=== PATIENT | female | born 1995 | race Caucasian/White ===

== ENCOUNTER 2017-04-07 15:19 | Emergency (ER) | payer OTHER ==
[2017-04-07] MEDS ORDERED: NORMAL SALINE 1000 ML 1,000 ML IV PRN (15:48)
--- NOTE | 2017-04-07 15:49 | ER Document Report ---
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 She states 3 or 4 days ago she had some pain after lifting a heavy bottle. Now she has constant right flank pain that makes her nauseated. She states she has been unable to eat. She states she has had fevers at home. She denies problems with bowel movements or urination. She does not believe that she is currently . She denies any previous surgeries or chronic medical conditions. TRAVEL OUTSIDE OF THE [place] IN LAST 30 DAYS: No - Related Data Allergies/Adverse Reactions: No Known Allergies Allergy (Unverified 04/07/17 15:28) Home Medications: Current Home Medications No Home Medications 04/07/17 [History] Past Medical History - Social History Frequency of alcohol use: None Drug Abuse: None Renal/ Medical History: Denies: Hx Peritoneal Dialysis Surgical Hx: Negative Physical Exam - Vital signs Vitals: Temp Pulse Resp BP Pulse Ox 98.8 F 121 H 16 120/64 96 04/07/17 15:28 04/07/17 15:28 04/07/17 15:28 04/07/17 15:28 04/07/17 15:28 Course - Vital Signs Vital signs: Temp Pulse Resp BP Pulse Ox 98.8 F 121 H 16 120/64 96 04/07/17 15:28 04/07/17 15:28 04/07/17 15:28 04/07/17 15:28 04/07/17 15:28
[2017-04-07 16:13] LABS: ABSOLUTE LYMPHOCYTES (AUTO) 0.9 10^3/uL (0.5-4.7); ABSOLUTE MONOCYTES (AUTO) 0.7 10^3/uL (0.1-1.4); ABSOLUTE NEUT (AUTO) 9.4 10^3/uL (1.7-8.2); BASOPHILS % (AUTO) 0.2 % (0-2); HEMATOCRIT 37.2 % (36.0-47.0); HEMOGLOBIN 12.6 g/dL (12.0-15.5); HGB HCT DIFFERENCE 0.6; LYMPHOCYTES % (AUTO) 7.9 % (13-45); MEAN CORPUSCULAR HEMOGLOBIN 29.4 pg (27.0-33.4); MEAN CORPUSCULAR VOLUME 87 fl (80-97); MONOCYTES % (AUTO) 6.4 % (3-13); RED CELL DISTRIBUTION WIDTH 12.8 % (11.5-14.0); SEGMENTED NEUTROPHILS % (AUTO) 85.5 % (42-78)
[2017-04-07 16:21] LABS: APPEARANCE,URINE SLIGHTLY-CLOUDY; BILIRUBIN,URINE NEGATIVE (NEGATIVE); GLUCOSE, URINE 50 mg/dL (NEGATIVE); KETONES,URINE NEGATIVE (NEGATIVE); LEUKOCYTE ESTERASE,URINE LARGE (NEGATIVE); NITRITE,URINE POSITIVE (NEGATIVE); PROTEIN,URINE 30 mg/dL (NEGATIVE); URINE SPECIFIC GRAVITY 1.012
[2017-04-07] MEDS ORDERED: CEFTRIAXONE 1 GM/D5W RTU 1 GM/50 ML RTUPB IV ONE (16:25)
[2017-04-07] MEDS ORDERED: ONDANSETRON HCL INJ/PF 4 MG/2 ML SDV IV ONE ×2 (16:25→18:28)
[2017-04-07] MEDS ORDERED: KETOROLAC TROMETHAMINE INJ/PF 30 MG/1 ML SDV IV ONE (16:25)
[2017-04-07 16:34] LABS: ALANINE AMINOTRANSFERASE 22 U/L (9-52); ALBUMIN 4.2 g/dL (3.5-5.0); ALKALINE PHOSPHATASE 96 U/L (38-126); ANION GAP 16 (5-19); ASPARTATE AMINO TRANSFERASE 17 U/L (14-36); BILIRUBIN,DIRECT 0.4 mg/dL (0.0-0.4); BILIRUBIN,TOTAL 0.5 mg/dL (0.2-1.3); BLOOD UREA NITROGEN 6 mg/dL (7-20); CALCIUM 9.3 mg/dL (8.4-10.2); CARBON DIOXIDE 22 mmol/L (22-30); CHLORIDE 99 mmol/L (98-107); CREATININE RESULT 0.68 mg/dL (0.52-1.25); GLUCOSE 128 mg/dL (75-110); LIPASE 36.7 U/L (23-300); POTASSIUM 3.7 mmol/L (3.6-5.0); SODIUM 136.7 mmol/L (137-145); TOTAL PROTEIN 7.2 g/dL (6.3-8.2)
--- NOTE | 2017-04-07 17:56 | RADIOLOGY REPORT (SQ) ---
EXAM DESCRIPTION: CT LTD RENAL STONE PROTOCOL ON COMPLETED DATE/TIME: 04/07/2017 5:31 pm REASON FOR STUDY: flank pain COMPARISON: None. TECHNIQUE: CT scan of the abdomen and pelvis performed without intravenous or oral contrast. Images reviewed with lung, soft tissue, and bone windows. Reconstructed coronal and sagittal MPR images revi ewed. All images stored on PACS. All CT scanners at this facility use dose modulation, iterative reconstruction, and/or weight based d osing when appropriate to reduce radiation dose to as low as reasonably achievable (ALARA). [facility]: Dose Right [facility]: CareDose [facility]: Dose Right [facility]: Teradose 4D [facility]: [employer] RADIATION DOSE: Up-to-date CT equipment and radiation dose reduction techniques were employed. CTDIv ol: 4.8 mGy. DLP: 252 mGy-cm.mGy. LIMITATIONS: None. FINDINGS: LOWER CHEST: No significant findings. No nodules or infiltrates. NON-CONTRASTED LIVER, SPLEEN, ADRENALS: Evaluation limited by lack of IV contrast. No identified sign ificant masses. PANCREAS: No masses. No peripancreatic inflammatory changes. GALLBLADDER: No identified stones by CT criteria. No inflammatory changes to suggest cholecystitis. RIGHT KIDNEY AND URETER: No suspicious masses. Assessment limited by lack of IV contrast. No signif icant calcifications. No hydronephrosis or hydroureter. There is perinephric stranding, however. LEFT KIDNEY AND URETER: No suspicious masses. Assessment limited by lack of IV contrast. No signifi cant calcifications. No hydronephrosis or hydroureter. AORTA AND RETROPERITONEUM: No aneurysm. No retroperitoneal masses or adenopathy. BOWEL AND PERITONEAL CAVITY: No obvious masses or inflammatory changes. No free fluid. APPENDIX: Normal. PELVIS, BLADDER, AND ABDOMINAL WALL:No abnormal masses. No free fluid. Bladder normal. BONES: Mild lumbar scoliosis. No osseous lesions. OTHER: No other significant finding. IMPRESSION: There is perinephric stranding on the right. There is no hydronephrosis or hydroureter. No obstructing calculus is seen. There may have been recent passage of a stone. Correlate clinica lly for infection. COMMENT: Quality ID # [id number]: Final reports with documentation of one or more dose reduction techniques (e.g., Automated exposure control, adjustment of the mA and/or kV according to patient size, use of iterative reconstruction technique) TECHNICAL DOCUMENTATION: JOB ID: [id number] [employer]- All Rights Reserved
[2017-04-07] MEDS ORDERED: MORPHINE SULFATE 10 MG/ML INJ IV ONE (18:28)
[2017-04-07] MEDS ORDERED: CEPHALEXIN 500 MG CAPSULE PO ONE (18:28)
--- NOTE | 2017-04-07 18:35 | ER Document Report ---
ED General - General Chief Complaint: Flank Pain Stated Complaint: RIGHT SIDE PAIN, FEVER Time Seen by Provider: 04/07/17 15:47 TRAVEL OUTSIDE OF THE [place] IN LAST 30 DAYS: No - HPI Patient complains to provider of: Right flank pain Notes: Patient coming in for evaluation of right flank pain and fever. Patient denies any dysuria. Denies history of kidney stones. Patient states nausea vomiting diarrhea. Patient denies any recent travel. Upon my evaluation patient is lying on the right side patient denies any abdominal pain states over pain in his right flank. Denies any shortness of breath denies any trauma - Related Data Allergies/Adverse Reactions: No Known Allergies Allergy (Unverified 04/07/17 15:28) Past Medical History - Social History Smoking Status: Never Smoker Frequency of alcohol use: None Drug Abuse: None Family History: Reviewed & Not Pertinent Patient has suicidal ideation: No Patient has homicidal ideation: No Renal/ Medical History: Denies: Hx Peritoneal Dialysis Surgical Hx: Negative Review of Systems - Review of Systems Constitutional: No symptoms reported EENT: No symptoms reported Cardiovascular: No symptoms reported Respiratory: No symptoms reported Gastrointestinal: No symptoms reported Genitourinary: Flank pain Female Genitourinary: No symptoms reported Musculoskeletal: No symptoms reported Skin: No symptoms reported Hematologic/Lymphatic: No symptoms reported Neurological/Psychological: No symptoms reported -: Yes All other systems reviewed and negative Physical Exam - Vital signs Vitals: Temp Pulse Resp BP Pulse Ox 98.8 F 121 H 16 120/64 96 04/07/17 15:28 04/07/17 15:28 04/07/17 15:28 04/07/17 15:28 04/07/17 15:28 Interpretation: Normal - General General appearance: Appears well, Alert - HEENT Head: Normocephalic, Atraumatic Eyes: Normal Pupils: PERRL - Respiratory Respiratory status: No respiratory distress Chest status: Nontender Breath sounds: Normal Chest palpation: Normal - Cardiovascular Rhythm: Regular Heart sounds: Normal auscultation Murmur: No - Abdominal Inspection: Normal Distension: No distension Bowel sounds: Normal Tenderness: Nontender Organomegaly: No organomegaly - Back Back: Normal, Nontender, CVA tenderness - Right - Extremities General upper extremity: Normal inspection, Nontender, Normal color, Normal ROM , Normal temperature General lower extremity: Normal inspection, Nontender, Normal color, Normal ROM , Normal temperature, Normal weight bearing. No: Srinivasa's sign - Neurological Neuro grossly intact: Yes Cognition: Normal Orientation: AAOx4 [place] Coma Scale Eye Opening: Spontaneous [place] Coma Scale Verbal: Oriented [place] Coma Scale Motor: Obeys Commands [place] Coma Scale Total: 15 Speech: Normal Motor strength normal: LUE, RUE, LLE, RLE Sensory: Normal - Psychological Associated symptoms: Normal affect, Normal mood - Skin Skin Temperature: Warm Skin Moisture: Dry Skin Color: Normal Course - Re-evaluation Re-evalutation: 04/07/17 22:41 Patient coming in for evaluation of right flank pain. Urinalysis does show signs of infection consistent with pilonidal however concern the patient having blood in urine CT of the abdomen was negative for kidney stone patient will be given a dose of IV antibiotics was able tolerate oral antibiotics here will be discharged home urine culture sent. - Vital Signs Vital signs: Temp Pulse Resp BP Pulse Ox 98.0 F 88 18 105/56 L 98 04/07/17 19:03 04/07/17 19:03 04/07/17 19:03 04/07/17 19:03 04/07/17 19:03 - Laboratory Result Diagrams: 04/07/17 15:55 04/07/17 15:55 Laboratory results interpreted by me: 04/07/17 04/07/17 04/07/17 15:52 15:55 15:55 WBC 11.0 H Seg Neutrophils % 85.5 H Lymphocytes % 7.9 L Absolute Neutrophils 9.4 H Sodium 136.7 L BUN 6 L Glucose 128 H Urine Protein 30 H Urine Glucose (UA) 50 H Urine Blood MODERATE H Urine Nitrite POSITIVE H Urine Urobilinogen 2.0 H Ur Leukocyte Esterase LARGE H Discharge - Discharge Clinical Impression: Pyelonephritis Condition: Good Disposition: HOME, SELF-CARE Instructions: Pyelonephritis ([facility]) Additional Instructions: Your evaluation today shows signs of pyelonephritis. Please make sure you follow-up with your primary care physician. Please take antibiotics as prescribed. Prescriptions: Cephalexin Monohydrate [Keflex 500 mg Capsule] 500 mg PO QID 10 Days capsule Ondansetron [Zofran Odt 4 mg Tablet] 1 - 2 tab PO Q4H PRN #20 tab.rapdis PRN Reason: For Nausea/Vomiting Tramadol HCl [Ultram 50 mg Tablet] 50 mg PO ASDIR PRN #20 tablet PRN Reason: Forms: Return to Work
[2017-04-07 19:03] VITALS: BP 105/56
== END 2017-04-07 19:03 | disposition home or self-care (01) ==
LOC: ER 15:19
DX: N12 Tubulo-interstitial nephritis, not specified as acute or chronic (principal); R10.9 Unspecified abdominal pain; R50.9 Fever, unspecified
CPT/HCPCS: 96376; 99284; 96361; 96375; 96365; 36415; 87040; 87086; 83690; 85025; 81025; 87088; 80053; 81001; 87186; 76380; J1885; J2270; J2405; J7030; J0696

== ENCOUNTER 2019-09-30 00:48 | Emergency (ER) | payer OTHER ==
[2019-09-30 02:18] LABS: ABSOLUTE LYMPHOCYTES (AUTO) 2.2 10^3/uL (0.5-4.7); ABSOLUTE MONOCYTES (AUTO) 0.4 10^3/uL (0.1-1.4); ABSOLUTE NEUT (AUTO) 5.3 10^3/uL (1.7-8.2); BASOPHILS % (AUTO) 0.3 % (0-2); EOSINOPHILS % (AUTO) 0.5 % (0-6); HEMATOCRIT 37.4 % (36.0-47.0); LYMPHOCYTES % (AUTO) 27.3 % (13-45); MEAN CORPUSCULAR HGB CONC 34.7 g/dL (32.0-36.0); MEAN CORPUSCULAR VOLUME 87 fl (80-97); MONOCYTES % (AUTO) 5.3 % (3-13); PLATELET COUNT 230 10^3/uL (150-450); RED BLOOD COUNT 4.32 10^6/uL (3.72-5.28); RED CELL DISTRIBUTION WIDTH 13.4 % (11.5-14.0); SEGMENTED NEUTROPHILS % (AUTO) 66.6 % (42-78); TOTAL CELLS COUNTED % (AUTO) 100 %
[2019-09-30 02:33] LABS: ALBUMIN 4.6 g/dL (3.5-5.0); ALKALINE PHOSPHATASE 89 U/L (38-126); ANION GAP 12 (5-19); APPEARANCE,URINE SLIGHTLY-CLOUDY; ASPARTATE AMINO TRANSFERASE 25 U/L (14-36); BILIRUBIN,DIRECT 0.3 mg/dL (0.0-0.4); BILIRUBIN,TOTAL 0.4 mg/dL (0.2-1.3); BILIRUBIN,URINE NEGATIVE (NEGATIVE); BLOOD UREA NITROGEN 15 mg/dL (7-20); CALCIUM 9.6 mg/dL (8.4-10.2); CALCIUM OXALATE CRYSTALS,URINE RARE /HPF; CARBON DIOXIDE 23 mmol/L (22-30); CHLORIDE 106 mmol/L (98-107); COLOR,URINE YELLOW; GLUCOSE 79 mg/dL (75-110); GLUCOSE, URINE NEGATIVE (NEGATIVE); KETONES,URINE TRACE mg/dL (NEGATIVE); LEUKOCYTE ESTERASE,URINE MODERATE (NEGATIVE); NITRITE,URINE NEGATIVE (NEGATIVE); POTASSIUM 4.1 mmol/L (3.6-5.0); PROTEIN,URINE 30 mg/dL (NEGATIVE); TOTAL PROTEIN 7.8 g/dL (6.3-8.2); URINE SPECIFIC GRAVITY 1.016; UROBILINOGEN,URINE NEGATIVE mg/dL (<2.0)
[2019-09-30] MEDS ORDERED: CEFTRIAXONE INJ 1000 MG VIAL IM ONE (05:01)
[2019-09-30] MEDS ORDERED: LIDOCAINE 1% INJ-PF (10 MG/ML) 30 ML SDV IM ONE (05:02)
[2019-09-30] MEDS ORDERED: HYDROCODONE/ACETAMINOPHEN 5-325 MG TABLET PO ONE (05:02)
--- NOTE | 2019-09-30 05:05 | ER Document Report ---
ED GI/ - General Chief Complaint: Flank Pain Stated Complaint: LOWER RIGHT SIDE PAIN/PAIN WHILE URINATING Time Seen by Provider: 09/30/19 04:45 Primary Care Provider: [facility] [Provider Group] - Follow up as needed Mode of Arrival: Ambulatory Information source: Patient Notes: Patient presents complaining of right flank pain that woke her up out of sleep yesterday. Patient states pain is been sharp. Patient does report some dysuria and hematuria. Patient denies any fever nausea or vomiting. Patient denies any concern about STI. TRAVEL OUTSIDE OF THE [place] IN LAST 30 DAYS: No - HPI Patient complains to provider of: Flank pain. No: Abdominal pain, Vomiting Onset: Yesterday Timing/Duration: Persistent, Worse Quality of pain: Sharp Pain Level: 4 Location: Right flank Vaginal bleeding (Compared to normal period): None Menstrual period history: denies: Sexual history: Active Associated symptoms: Dysuria. denies: Fever, Loss of appetite, Nausea, Urinary hesitancy, Urinary frequency, Urinary retention, Urinary urgency, Vomiting Exacerbated by: Denies Relieved by: Denies Similar symptoms previously: No Recently seen / treated by doctor: No - Related Data Allergies/Adverse Reactions: No Known Allergies Allergy (Unverified 04/07/17 15:28) Home Medications: OTC UTI med. melissa asa Past Medical History - General Information source: Patient - Social History Smoking Status: Never Smoker Frequency of alcohol use: None Drug Abuse: None Occupation: none Family History: Reviewed & Not Pertinent Patient has suicidal ideation: No Patient has homicidal ideation: No - Medical History Medical History: Negative Renal/ Medical History: Denies: Hx Peritoneal Dialysis Surgical Hx: Negative Review of Systems - Review of Systems Constitutional: No symptoms reported. denies: Fever EENT: No symptoms reported Cardiovascular: No symptoms reported Respiratory: No symptoms reported. denies: Cough, Short of breath Gastrointestinal: No symptoms reported. denies: Abdominal pain, Nausea, Vomiting Genitourinary: Dysuria, Flank pain Female Genitourinary: No symptoms reported Musculoskeletal: Back pain Skin: No symptoms reported Hematologic/Lymphatic: No symptoms reported Neurological/Psychological: No symptoms reported Physical Exam - Vital signs Vitals: Temp Pulse Resp BP Pulse Ox 98.3 F 74 16 128/75 H 100 09/30/19 00:56 09/30/19 00:56 09/30/19 00:56 09/30/19 00:56 09/30/19 00:56 - General General appearance: Appears well, Alert In distress: None - HEENT Head: Normocephalic, Atraumatic Eyes: Normal Nasal: Normal Mouth/Lips: Normal Neck: Normal, Supple - Respiratory Respiratory status: No respiratory distress Chest status: Nontender Breath sounds: Normal. No: Rales, Rhonchi, Stridor, Wheezing Chest palpation: Normal - Cardiovascular Rhythm: Regular Heart sounds: S1 appreciated, S2 appreciated - Abdominal Inspection: Normal Distension: No distension Bowel sounds: Normal Tenderness: Nontender - Back Back: CVA tenderness - right - Extremities General upper extremity: Normal inspection, Normal ROM General lower extremity: Normal inspection, Normal ROM - Neurological Cognition: Normal [place] Coma Scale Eye Opening: Spontaneous [place] Coma Scale Verbal: Oriented [place] Coma Scale Motor: Obeys Commands [place] Coma Scale Total: 15 - Psychological Associated symptoms: Normal affect, Normal mood - Skin Skin Temperature: Warm Skin Moisture: Dry Skin Color: Normal Course - Re-evaluation Re-evalutation: 09/30/19 06:41 Patient with right flank pain and UTI worrisome for pyelonephritis. CT scan reviewed, no concern for any obstructive uropathy. Patient otherwise nontoxic in appearance. Will cover with antibiotics and culture urine at this time. Good return precautions discussed with patient. - Vital Signs Vital signs: Temp Pulse Resp BP Pulse Ox 97.8 F 67 16 113/73 100 09/30/19 06:55 09/30/19 06:55 09/30/19 06:55 09/30/19 06:55 09/30/19 06:55 - Laboratory Result Diagrams: 09/30/19 01:40 09/30/19 01:40 Laboratory results interpreted by me: 09/30/19 01:40 Urine Protein 30 H Urine Ketones TRACE H Urine Blood SMALL H Ur Leukocyte Esterase MODERATE H 09/30/19 06:41 Labs- Entire Visit 09/30/19 09/30/19 09/30/19 01:40 01:40 01:40 WBC 8.0 RBC 4.32 Hgb 13.0 Hct 37.4 MCV 87 MCH 30.0 MCHC 34.7 RDW 13.4 Plt Count 230 Lymph % (Auto) 27.3 [place] % (Auto) 5.3 Eos % (Auto) 0.5 Baso % (Auto) 0.3 Absolute Neuts (auto) 5.3 Absolute Lymphs (auto) 2.2 Absolute Monos (auto) 0.4 Absolute Eos (auto) 0.0 Absolute Basos (auto) 0.0 Seg Neutrophils % 66.6 Sodium 141.4 Potassium 4.1 Chloride 106 Carbon Dioxide 23 Anion Gap 12 BUN 15 Creatinine 0.55 Est GFR ( Amer) > 60 Est GFR (MDRD) Non-Af > 60 Glucose 79 Calcium 9.6 Total Bilirubin 0.4 Direct Bilirubin 0.3 Neonat Total Bilirubin Not Reportable Neonat Direct Bilirubin Not Reportable Neonat Indirect Bili Not Reportable AST 25 ALT 13 Alkaline Phosphatase 89 Total Protein 7.8 Albumin 4.6 Lipase 78.6 Urine Color YELLOW Urine Appearance SLIGHTLY-CLOUDY Urine pH 7.0 Ur Specific [place] 1.016 Urine Protein 30 H Urine Glucose (UA) NEGATIVE Urine Ketones TRACE H Urine Blood SMALL H Urine Nitrite NEGATIVE Urine Bilirubin NEGATIVE Urine Urobilinogen NEGATIVE Ur Leukocyte Esterase MODERATE H Urine WBC (Auto) 160 Urine RBC (Auto) 26 Squamous Epi Cells Auto 1 Calcium Oxalate Cr Auto RARE Urine Mucus (Auto) RARE Urine Ascorbic Acid NEGATIVE Urine HCG, Qual NEGATIVE - Diagnostic Test Radiology reviewed: Reports reviewed Discharge - Discharge Clinical Impression: Pyelonephritis Condition: Stable Disposition: HOME, SELF-CARE Instructions: Cephalexin ([facility]), Pyelonephritis ([facility]), Rocephin ([facility]), Trimethoprim-Sulfa ([facility]) Additional Instructions: Return immediately for any new or worsening symptoms Followup with your primary care provider, call tomorrow to make a followup appointment Urine culture is pending, we will call if you need any different treatment Prescriptions: Sulfamethoxazole/Trimethoprim [Bactrim Ds Tablet] 1 each PO BID #20 tablet Cephalexin Monohydrate [Keflex 500 mg Capsule] 500 mg PO BID 7 Days #14 capsule Naproxen [Naprosyn 250 Nmg Tablet] 1 tab PO BID #14 tablet Forms: Return to Work Referrals: [facility] [Provider Group] - Follow up as needed
--- NOTE | 2019-09-30 06:25 | RADIOLOGY REPORT (SQ) ---
EXAM DESCRIPTION: CT ABDOMEN PELVIS WITHOUT IV CONTRAST COMPLETED DATE/TME: 09/30/2019 05:02 CLINICAL HISTORY: 23 years Female, R flank pain, UTI Comparison:Apr 07 2017 Technique: No contrast. Coronal and sagittal reformat. This exam was performed according to our departmental dose-optimization program, which includes automated exposure control, adjustment of the mA and/or kV according to patient size and/or use of iterative reconstruction technique.[facility]: Dose Right [facility]: CareDose [facility]: Dose Right [facility]: Teradose 4D [facility]: [employer] LIMITATIONS: None Findings: Mild levo convexity. Stool retention. No ascites. No pneumoperitoneum. Normal appendix. No gross evidence of gallbladder inflammation, hepatobiliary obstruction, or portal vein defect. No bowel obstruction. No hydronephrosis or hydroureter. No renal/ureteral stone. No evidence of abdominal aortic aneurysm. No gross evidence of thecal sac/cord or nerve root compression. Unenhanced lower thorax, abdominopelvic structures, and musculoskeleton appear otherwise grossly unremarkable. Impression: No acute findings.
[2019-09-30 07:10] VITALS: BP 113/73
== END 2019-09-30 06:55 | disposition home or self-care (01) ==
LOC: ER 00:48
DX: N12 Tubulo-interstitial nephritis, not specified as acute or chronic (principal); R31.9 Hematuria, unspecified; Z79.82 Long term (current) use of aspirin; Z79.899 Other long term (current) drug therapy
CPT/HCPCS: 99284; 96372; 36415; 87086; 83690; 85025; 81025; 87088; 80053; 81001; 87186; 74176; J3490; J0696

== ENCOUNTER 2020-07-15 18:49 | Inpatient (IN) | payer OTHER, MEDICAID ==
[2020-07-15 19:49] LABS: APPEARANCE,URINE CLOUDY; BILIRUBIN,URINE NEGATIVE (NEGATIVE); COLOR,URINE YELLOW; GLUCOSE, URINE NEGATIVE (NEGATIVE); KETONES,URINE NEGATIVE (NEGATIVE); LEUKOCYTE ESTERASE,URINE MODERATE (NEGATIVE); NITRITE,URINE NEGATIVE (NEGATIVE); PROTEIN,URINE 30 mg/dL (NEGATIVE); URINE SPECIFIC GRAVITY 1.017; UROBILINOGEN,URINE NEGATIVE mg/dL (<2.0)
[2020-07-15 20:06] LABS: URINE AMPHETAMINES SCREEN NEGATIVE; URINE BARBITURATES SCREEN NEGATIVE; URINE BENZODIAZEPINES SCREEN NEGATIVE; URINE COCAINE SCREEN NEGATIVE; URINE MARIJUANA (THC) SCREEN NEGATIVE; URINE METHADONE SCREEN NEGATIVE; URINE PHENCYCLIDINE SCREEN NEGATIVE
[2020-07-15] MEDS ORDERED: RINGERS SOLUTION,LACTATED 1,000 ML IV PRN (22:11)
[2020-07-15] MEDS ORDERED: OXYTOCIN 10 UNIT/ML VIAL ONE (22:36)
[2020-07-15] MEDS ORDERED: OXYTOCIN/0.9 % SODIUM CHLORIDE 30 UNIT/500 ML RTUINJ ONE (22:36)
[2020-07-15] MEDS ORDERED: MISOPROSTOL 0.2 MG TABLET ONE (22:36)
[2020-07-15] MEDS ORDERED: LIDOCAINE 1% INJ-PF (10 MG/ML) 30 ML SDV ONE (22:36)
[2020-07-15 22:41] LABS: ABSOLUTE LYMPHOCYTES (AUTO) 1.5 10^3/uL (0.5-4.7); ABSOLUTE MONOCYTES (AUTO) 0.5 10^3/uL (0.1-1.4); BASOPHILS % (AUTO) 0.2 % (0-2); EOSINOPHILS % (AUTO) 0.2 % (0-6); HEMATOCRIT 28.8 % (36.0-47.0); HEMOGLOBIN 10.1 g/dL (12.0-15.5); LYMPHOCYTES % (AUTO) 18.4 % (13-45); MEAN CORPUSCULAR HEMOGLOBIN 30.1 pg (27.0-33.4); MEAN CORPUSCULAR VOLUME 86 fl (80-97); MONOCYTES % (AUTO) 5.9 % (3-13); PLATELET COUNT 132 10^3/uL (150-450); RED BLOOD COUNT 3.34 10^6/uL (3.72-5.28); RED CELL DISTRIBUTION WIDTH 14.2 % (11.5-14.0); SEGMENTED NEUTROPHILS % (AUTO) 75.3 % (42-78); TOTAL CELLS COUNTED % (AUTO) 100 %; WHITE BLOOD COUNT 7.9 10^3/uL (4.0-10.5)
[2020-07-16] MEDS ORDERED: EPHEDRINE SULFATE INJ 50 MG/1 ML AMPULE ONE (08:32)
[2020-07-16] MEDS ORDERED: ROPIVACAINE HCL 0.2% INJ/PF (2 MG/ML) 20 ML SDV ONE (08:33)
[2020-07-16] MEDS ORDERED: FENTANYL/BUPIVACAINE/NS/PF 300 MCG/150 ML RTUINJ EPI ONE (08:33)
--- NOTE | 2020-07-16 09:37 | Admission Physical ---
Datetime Report Generated by CPN: 07/16/2020 09:37 CURRENT ADMISSION Chief Complaint: Uterine Contractions Admit Impression : Term, Intrauterine Admit Plan: Admit to Unit; Initiate Labor Protocol ALLERGIES Medication Allergies: No Medication Allergies: No Known Allergies (07/15/2020) Latex: No Latex Allergies OBSTETRICAL HISTORY EDC: 07/24/2020 00:00 : 1 Para: 0 Term: 0 : 0 SAB: 0 IAB: 0 Ectopic: 0 Livin Cesareans: 0 VBACs: 0 Multiple Births: 0 Gestational Diabetes: No Rh Sensitization: No Incompetent Cervix: No FABIOLA: No Infertility: No ART Treatment: No Uterine Anomaly: No IUGR: No Hx Previous C/S: No Macrosomia: No Hx Loss/Stillborn: No PIH: No Hx : No Placenta Previa/Abruption: No Depression/PP Depression: No PTL/PROM: No Post Hemorrhage: No Current Procedures: Ultrasound (Annotations: Data stored by N on behalf of user) Obstetrical History Comments: G1- current SEE RECORDS Alcohol: No Marijuana : No Cocaine: No Other Illicit Drugs: No Cigarettes: Never Smoker. [id number] MEDICAL HISTORY Diabetes: No Blood Transfusion: No Pulmonary Disease (Asthma, TB): No Breast Disease: No Hypertension: No Email Marketer Surgery: No Heart Disease: No Hosp/Surgery: No Autoimmune Disorder: No Anesthetic Complications: No Kidney Disease: No Abnormal Pap Smear: No Neuro/Epilepsy: No Psychiatric Disorders: No Other Medical Diseases: No Hepatitis/Liver Disease: No Significant Family History: No Varicosities/Phlebitis: No Trauma/Violence : No Thyroid Dysfunction: No Medical History Comments: anemia INFECTIOUS HISTORY Gonorrhea: No Genital Herpes: No Chlamydia: No Tuberculosis: No Syphilis: No Hepatitis: No HIV/AIDS Exposure: No Rash or Viral Illness: No HPV: No PHYSICAL EXAM General: Normal HEENT: Normal Neurologic: Normal Thyroid: Normal Heart: Normal Lungs: Normal Breast: Normal Back: Normal Abdomen: Normal Genitourinary Exam: Normal Extremities: Normal DTRs: Normal Pelvic Type: Adequate Vital Signs: Reviewed FETUS A EGA: 38.6 Monitoring: External US FHR- Baseline: 130 Variability: Moderate 6-25bpm Accelerations: 15X15 Decelerations: None FHR Category: Category I Admit Comment: pt admitted over night w/ cervical change. Went from 3 cm to 6 cm and pt was admitted in active labor. Attending MD last night was Dr Junior. G 1 P0 at 38 wks 5 days. Denies SROM. Spontatneous labor, GBS negative. Epidural just placed. will AROM once pt is comfortable. Attending MD today is Dr Cardona and she agrees w/ plan of care INFORMED CONSENT Assignment: Matilde Cardona MD Signature: with User ID: Sy : with User ID: [email or web address]
--- NOTE | 2020-07-16 10:06 | L&D Progress Notes ---
PROGRESS NOTES Datetime Report Generated by CPN: 07/16/2020 10:01 PROGRESS NOTE Impression: Normal Progression of Labor Procedures: Artificial ROM; Sterile Vag Exam Plan: Continue Present Management Vital Signs : Reviewed Comment: Pt comfortable w/ epidural in place. VE /1. AROM w/ dark red blood, clotted already. RN will weigh the pad. No active bleeding after the AROM. Blood was inside amniotic sac. Dr Cardona in room to view. Will watch for active vaginal bleeding. Position changes encouraged. Anticipate . VAGINAL EXAM Dilatation: 8 Effacement: 90 Station: -1 Contractions: q1-4 LAST VAGINAL EXAM-NURSING Nursing Exam Dilitation: 6.0 Nursing Exam Effacement: 80 Nursing Exam Station: -2 MEMBRANES Membranes: Ruptured Amniotic Fluid Color: Bloody FETUS A FHR - Baseline: 130 Monitoring: External US Variability: Moderate 6-25bpm Accelerations: 10X10 SIGNATURE SIGNATURE: [id number];[id number] Assignment: Matilde Cardona MD Signature: with User ID: Sy : with User ID: [email or web address]
[2020-07-16] MEDS ORDERED: NORMAL SALINE 250 ML IV PRN ×2 (10:32)
[2020-07-16] MEDS ORDERED: DIPH/PERTUSS(ACELL)/TETANUS VAC/PF 0.5 ML SYR (>=10YO) IM PRN (12:03)
[2020-07-16] MEDS ORDERED: PROMETHAZINE HCL 25 MG SUPP.RECT PR PRN (12:03)
[2020-07-16] MEDS ORDERED: MEASLES,MUMPS&RUBELLA VACC/PF 0.5 ML VIAL SUBCUT PRN (12:03)
[2020-07-16] MEDS ORDERED: NA PHOS,M-B/NA PHOS,DI-BA (ADULT) 133 ML ENEMA PR PRN (12:03)
[2020-07-16] MEDS ORDERED: ACETAMINOPHEN 650 MG SUPP.RECT PR PRN (12:03)
[2020-07-16] MEDS ORDERED: DIBUCAINE 1% OINTMENT 28 GM TP PRN (12:03)
[2020-07-16] MEDS ORDERED: GLYCERIN/WITCH HAZEL LEAF 1 EACH MED..WIPE TP PRN (12:03)
[2020-07-16] MEDS ORDERED: BENZOCAINE/MENTHOL AEROSOL SPRAY 56 ML TOP PRN (12:03)
[2020-07-16] MEDS ORDERED: DIPHENHYDRAMINE HCL 25 MG CAPSULE PO PRN (12:03)
[2020-07-16] MEDS ORDERED: PROMETHAZINE HCL INJ 25 MG/1 ML VIAL IV PRN (12:03)
[2020-07-16] MEDS ORDERED: ZOLPIDEM TARTRATE 5 MG TABLET PO PRN (12:03)
[2020-07-16] MEDS ORDERED: MAGNESIUM HYDROXIDE SUSP 30 ML UDCUP PO PRN (12:03)
[2020-07-16] MEDS ORDERED: PROMETHAZINE HCL 25 MG TABLET PO PRN (12:03)
[2020-07-16] MEDS ORDERED: ACETAMINOPHEN WITH CODEINE #3 TABLET PO PRN (12:03)
[2020-07-16] MEDS ORDERED: OXYTOCIN/0.9 % SODIUM CHLORIDE 30 UNIT/500 ML RTUINJ IV PRN (12:03)
--- NOTE | 2020-07-16 14:17 | Birth Certificate Data ---
Cert Data Datetime Report Generated by CPN: 07/16/2020 14:17 CERTIFICATE DATA Delivery Provider: Sarika Parra CNM (07/15/2020 18:56:STERLING Moulton) 47a. Care: Yes (07/15/2020 18:56:Lizeth Curtis RN) 47b. Date of First Visit: 01/03/2020 00:00 (07/15/2020 18:56:Lizeth Curtis RN) 47c. Date of Last Visit: 07/12/2020 00:00 (07/15/2020 18:56:Lizeth Curtis RN) 47d. Number of Visits: 11 (07/15/2020 18:56:Lizeth Curtis RN) 48a. Number of Prev Live Births: 0 (07/15/2020 18:56:Lizeth Curtis RN) 48b. Now Livin (07/15/2020 18:56:Lizeth Curtis RN) 48c. Live Births Now : 0 (07/15/2020 18:56:QS system process) 48e. Losses: 0 (07/15/2020 18:56:Lizeth Curtis RN) RISK FACTORS IN THIS 49a. Diabetes: No (07/15/2020 18:56:Lizeth Curtis RN) 49b. Hypertension: No (07/15/2020 18:56:Lizeth Curtis RN) 49c. Previous Births: 0 (07/15/2020 18:56:Lizeth Curtis RN) 49d. Stillborns: No (07/15/2020 18:56:Lizeth Curtis RN) 49d. IUGR: No (07/15/2020 18:56:Lizeth Curtis RN) 49e. Infertility Treatment: No (07/15/2020 18:56:Lizeth Curtis RN) 49f. Previous Cesareans: 0 (07/15/2020 18:56:Lizeth Curtis RN) Mother's Height 50b. Height Inches: 62 (07/16/2020 14:09:QS system process) Mother's Weight 51b. Weight at Delivery (lbs): 136 (07/15/2020 19:03:QS system process) 52. Dt Last Normal Menses Began: 10/18/2019 00:00 (07/15/2020 18:56:Lizeth Curtis RN) Infections Present/Treated 53a. Gonorrhea: No (07/15/2020 18:56:Lizeth Curtis RN) Results this Hospital Visit : Negative (07/15/2020 18:56:Lizeth Curtis RN) 53b. Syphilis: No (07/15/2020 18:56:Lizeth Curtis RN) Results this Hospital Visit: NONREACTIVE (07/15/2020 22:30:QS system process) 53c. Chlamydia: No (07/15/2020 18:56:Lizeth Curtis RN) Results this Hospital Visit: Negative (07/15/2020 18:56:Lizeth Curtis RN) 53d. Hepatitis B: No (07/15/2020 18:56:Lizeth Curtis RN) Results this Hospital Visit: Negative (07/15/2020 18:56:Lizeth Curtis RN) 53e. Hepatitis C: Negative (07/15/2020 18:56:Lizeth Curtis RN) 53h. Mother Tested for HBsAG: Yes (07/15/2020 18:56:Lizeth Curtis RN) 53i. Date Tested: 01/03/2020 00:00 (07/15/2020 18:56:Lizeth Curtis RN) 53j. Test Result: Negative (07/15/2020 18:56:Lizeth Curtis RN) Obstetric Procedures 54a, b, c. Obstetric Procedures: Ultrasound (Annotations: Data stored by [facility] on behalf of user) (07/15/2020 18:56:Gely Cummins RN) Cigarette Smoking Cigarette Smoking: Never Smoker. [id number] (07/15/2020 18:56:Lizeth Curtis RN) 55a. 3 Months Before Preg - Ci (07/15/2020 18:56:Lizeth Curtis RN) 55a. Packs: 0 (07/15/2020 18:56:Lizeth Curtis RN) 55b. 1st Trimester of Preg- Ci (07/15/2020 18:56:Lizeth Curtis RN) 55b. Packs: 0 (07/15/2020 18:56:Lizeth Curtis RN) 55c. 2nd Trimester of Preg- Ci (07/15/2020 18:56:Lizeth Curtis RN) 55c. Packs: 0 (07/15/2020 18:56:Lizeth Curtis RN) 55d. 3rd Trimester of Preg- Ci (07/15/2020 18:56:Lizeth Curtis RN) 55d. Packs: 0 (07/15/2020 18:56:Lizeth Curtis RN) Onset of Labor 56a. PROM >12 Hrs: 1.77 (07/15/2020 18:56:QS system process) 56b. Precipitous Labor <3 Hrs: 7 (07/15/2020 18:56:QS system process) 56c. Prolonged Labor > 20 Hrs: 7 (07/15/2020 18:56:QS system process) 57a. Induction of Labor: N/A (07/15/2020 18:56:STERLING Moulton) 57c. Non-Vertex Presentation A: Vertex (07/15/2020 18:56:Judith Lanier Ramin) 57d. Steroids - Lung Mat: None (07/15/2020 18:56:STERLING Moulton) 57d. Steroids - Lung Mat: Not Applicable (07/15/2020 18:56:Judith Lanier Ramin) 57f. Mat [place] or Temp >100.4: 98.2 (07/15/2020 18:56:Gely Cummins RN) 57g. Moderate/Heavy Meconium: Bloody (07/16/2020 09:53:Gely Cummins RN) 57h. Intolerance of Labor: N/A (07/15/2020 18:56:STERLING Moulton) : N/A (07/15/2020 18:56:Judith Lanier Ramin) 57i. Epidural/Spinal Anesthesia: Epidural (07/15/2020 18:56:Judith Lanier [facility]) Method of Delivery 58a. Forceps - Unsuccessful A: N/A (07/15/2020 18:56:STERLING Moulton) 58b. Vacuum - Unsuccessful A: N/A (07/15/2020 18:56:Judith Camp, [facility]) 58c. Presentation at 58c. Presentation at - A : Vertex (07/15/2020 18:56:[facility]) 58c. Presentation at - A : N/A (07/15/2020 18:56:[facility]) 58c. Presentation at - A : Cephalic (07/16/2020 09:53:Gely Cummins RN) Final Route and Method of Del 58d. Baby A Route/Del[facility]: [facility]e. Trial of Labor Attempted: No (07/15/2020 18:56:Judith [place], [facility]) 58e. Trial of Labor Attempted A: N/A (07/15/2020 18:56:Judith Camp, [facility]) 58e. Trial of Labor Attempted B: N/A (07/15/2020 18:56:Judith [place], [facility]) Maternal Morbidity 59b. 3rd or 4th Degree Lacs: Perineal (07/15/2020 18:56:Judith [place], RN) 59b. 3rd or 4th Degree Lacs: First Degree (07/15/2020 18:56:Judith Camp, RN) 59b. 3rd or 4th Degree Lacs: periurethral (07/15/2020 18:56:Judith [place], RNC) Birthweight Baby A: 2783 (07/15/2020 18:56:Gely Cummins RN) 60a. Pounds : 6 (07/15/2020 18:56:QS system process) 60b. Ounces: 2 (07/15/2020 18:56:QS system process) 61. GA at Delivery Baby A: 38.6 (07/15/2020 18:56:Judith Camp, [facility]) : Early Term- 37- 38.6 Weeks (07/15/2020 18:56:QS system process) 62a. 5 Minute Baby A: 9 (07/15/2020 18:56:QS system process)
--- NOTE | 2020-07-16 14:17 | Delivery Summary ---
Del Sum A-C Datetime Report Generated by CPN: 07/16/2020 14:17 DELIVERY PERSONNEL DELIVERY PERSONNEL: [id number] Delivery Doctor:: Sarika Parra CNM Nurse Brass Bobbin Winder Certified:: Sarika Parra CNM DRAFTER APPRENTICE:: Veronika Bee Labor and Delivery Nurse:: Gely Cummins RNrodent control worker Nurse:: STERLING Moulton Nursery Nurse:: Shantelle Tabares RN Nursery Nurse:: Dalila Onofre RN Production Engineer/MOLASSES PREPARER: Glenna Marshburn, ASSISTANT ANALYST MATERNAL INFORMATION Delivery Anesthesia: Epidural Medications After Delivery: Pitocin Bolus-Please Comment; Pitocin 30 Units in 500ml NS/D5W Estimated Blood Loss (ml): 50 Delivery QBL: 50 Maternal Complications: None Provider Comments: of VMI, delivered OA, vigorous and crying, bulb suctioned then placed on pts abdoman in stable condition. Short cord noted. Clear amniotic fluid noted at delivery, no bleeding or blood clots present at delivery. Cord clamped and cut after one minute. Placenta S/C/I. Placenta appeared very small for 38 week . Will send to pathology. IV Pitocin infusing, FF w/ scant lochia, QBL 50 ml. Apgars 9,9. Mother and baby left in stable condition, plans to bottlefeed LABOR SUMMARY EDC: 07/24/2020 00:00 No. Babies in Womb: 1 Attempted: No Labor Anesthesia: Epidural LABOR INFORMATION Reason for Induction: Not Applicable Onset of Labor: 07/16/2020 04:30 Complete Dilatation: 07/16/2020 10:44 Oxytocin: N/A Group B Beta Strep: Negative Antibiotics # of Doses: 0 Name of Antibiotic Given: N/A Steroids Given: None Reason Steroids Not Administered: Not Applicable MEMBRANES Membranes Rupture Method: Artificial Rupture of Membranes: 07/16/2020 09:53 Length of Rupture (hr): 1.77 Amniotic Fluid Color: Bloody Amniotic Fluid Amount: Moderate Amniotic Fluid Odor: Normal STAGES OF LABOR Stage 1 hr: 6 Stage 1 min: 14 Stage 2 hr: 0 Stage 2 min: 55 Stage 3 hr: 0 Stage 3 min: 9 Total Time in Labor hr: 7 Total Time in Labor min: 18 VAGINAL DELIVERY Episiotomy: None Laceration #1: Perineal Laceration Extension #1: First Degree Other Laceration: periurethral Laceration Repair: Yes Laceration Repair Note: 1st degree vaginal laceration repaired w/ 3.0 vicryl in usual fashion, periurethral laceration was hemmostatic and no repair needed Sponge Count Correct: N/A Sharps Count Correct: N/A CSECTION DELIVERY Primary Indication: N/A Secondary Indication: N/A CSection Incidence: N/A Labor: N/A Elective: N/A CSection Incision: N/A BABY A INFORMATION Delivery Date/Time: 07/16/2020 11:39 Method of Delivery: Vaginal Nurse Controlled Delivery: No Born in Route : No : N/A Forceps: N/A Vacuum Extraction: N/A Shoulder Dystocia : No PRESENTATION/POSITION BABY A Presentation: Cephalic Cephalic Presentation: Vertex Vertex Position: Right Occipital Anterior Breech Presentation: N/A PLACENTA INFORMATION BABY A Placenta Delivery Time : 07/16/2020 11:48 Placenta Method of Delivery: Spontaneous Placenta Status: Delivered SCORES BABY A Heart Rate 1 min: >100 bpm Resp Effort 1 min: Good Cry Reflex Irritability 1 min: Cough or Sneeze or Pulls Away Muscle Tone 1 min: Active Motion Color 1 min: Body [place], Extremities Blue Resuscitation Effort 1 min: Tactile Stimulation SCORE 1 MIN: 9 Heart Rate 5 min: >100 bpm Resp Effort 5 min: Good Cry Reflex Irritability 5 min: Cough or Sneeze or Pulls Away Muscle Tone 5 min: Active Motion Color 5 min: Body [place], Extremities Blue Resuscitation Effort 5 min: N/A SCORE 5 MIN: 9 Resuscitation Effort 10 min: N/A INFORMATION BABY A Gestational Age at Delivery: 38.6 Gestational Status: Early Term- 37- 38.6 Weeks Outcome : Liveborn Condition : Stable Sex: Male IDENTIFICATION BABY A Verification Date/Time: 07/16/2020 12:07 ID Band Number: [id number] Mother's Name Verified: Yes RN Verifying Infant: LLashaun Cummins, RN Additional Verifying Personnel: DLashaun Tosha WEIGHT/LENGTH BABY A Birthweight (gm): 2783 Weight (lb): 6 Infant Weight (oz): 2 Infant Length (in): 19.50 Infant Length (cm): 49.53 CORD INFORMATION BABY A No. Cord Vessels: 3 Nuchal Cord : N/A Cord Blood Taken: Yes-For Storage (Mom's Blood type +) Infant Suction: None ASSESSMENT BABY A Complications: Multiple Variable Decels; Other Physical Findings at Delivery: Caput Succedaneum Respirations: Appears Normal Skin to Skin: Yes Trace Clerk/ALS Called : No Infant Care By: Desirae Tabares RN/ A [place] RN Transferred To: Remains with Mother BABY B INFORMATION : N/A SIGNATURES Assignment: Matilde Cardona MD Signature: with User ID: Sy : with User ID: Sy
[2020-07-16] MEDS: IBUPROFEN 800 MG TABLET PO SCH ×2 (16:53→21:32)
[2020-07-16] MEDS: DOCUSATE SODIUM 100 MG CAPSULE PO SCH (17:54)
[2020-07-16] MEDS: FERROUS SULFATE 325 MG TABLET PO SCH (17:54)
[2020-07-16] MEDS: FAMOTIDINE 20 MG TABLET PO SCH (21:32)
[2020-07-17] MEDS: IBUPROFEN 800 MG TABLET PO SCH ×3 (05:54→21:36)
[2020-07-17 06:37] LABS: HEMATOCRIT 29.3 % (36.0-47.0); HEMOGLOBIN 10.2 g/dL (12.0-15.5); MEAN CORPUSCULAR HEMOGLOBIN 29.9 pg (27.0-33.4); MEAN CORPUSCULAR HGB CONC 34.6 g/dL (32.0-36.0); MEAN CORPUSCULAR VOLUME 86 fl (80-97); PLATELET COUNT 132 10^3/uL (150-450); RED CELL DISTRIBUTION WIDTH 14.2 % (11.5-14.0); WHITE BLOOD COUNT 9.6 10^3/uL (4.0-10.5)
[2020-07-17] MEDS: SENNOSIDES/DOCUSATE 8.6-50 MG 1 EACH TABLET PO SCH (09:37)
[2020-07-17] MEDS: FERROUS SULFATE 325 MG TABLET PO SCH ×2 (09:38→18:33)
[2020-07-17] MEDS: FAMOTIDINE 20 MG TABLET PO SCH ×2 (09:38→21:36)
[2020-07-17] MEDS: PRENATAL VITAMIN W DHA CAPSULE PO SCH (09:38)
[2020-07-17] MEDS: DOCUSATE SODIUM 100 MG CAPSULE PO SCH ×2 (09:38→18:33)
[2020-07-18] MEDS: IBUPROFEN 800 MG TABLET PO SCH (06:17)
[2020-07-18] MEDS: FERROUS SULFATE 325 MG TABLET PO SCH (09:42)
[2020-07-18] MEDS: PRENATAL VITAMIN W DHA CAPSULE PO SCH (09:42)
[2020-07-18] MEDS: DOCUSATE SODIUM 100 MG CAPSULE PO SCH (09:43)
[2020-07-18] MEDS: SENNOSIDES/DOCUSATE 8.6-50 MG 1 EACH TABLET PO SCH (09:43)
[2020-07-18] MEDS: FAMOTIDINE 20 MG TABLET PO SCH (09:43)
--- NOTE | 2020-07-18 11:39 | PDOC DISCHARGE SUMMARY ---
Impression - Admit/DC Date/PCP Admission Date/Primary Care Provider: 07/15/20 21:45 DESTINY ROBERTS MD Discharge Date: 07/18/20 - Discharge Diagnosis (1) (spontaneous vaginal delivery) Is this a current diagnosis for this admission?: Yes (2) Active labor at term Is this a current diagnosis for this admission?: Yes (3) Laceration, obstetrical, first degree Is this a current diagnosis for this admission?: Yes (4) Gestational thrombocytopenia without hemorrhage in third trimester Is this a current diagnosis for this admission?: Yes - Additional Information Resuscitation Status: Full Code Discharge Diet: Regular Discharge Activity: Balance Activity w/Rest, Pelvic Rest Referrals: DESTINY ROBERTS MD [Primary Care Provider] - Prescriptions: Ibuprofen [Motrin 800 mg Tablet] 800 mg PO Q8HP PRN #60 tablet PRN Reason: Home Medications: Vitamin [-U Multiple Vitamin Capsule] 1 tab PO DAILY 07/15/20 Ibuprofen [Motrin 800 mg Tablet] 800 mg PO Q8HP PRN #60 tablet 07/18/20 HPI Gestational Age: 38.6 Reason(s) for Admission: Onset of Labor Procedures: NST Intrapartum Procedure(s): Spontaneous Vaginal Delivery Complication(s): Laceration-Perineal Laceration-Degree: 1st Hospital Course 59. Maternal Morbidity (serious complications experinced by the mother associated with labor and delivery: None of the above Results Laboratory Results: WBC 9.6 10^3/uL (4.0-10.5) 07/17/20 06:20 RBC 3.40 10^6/uL (3.72-5.28) L 07/17/20 06:20 Hgb 10.2 g/dL (12.0-15.5) L 07/17/20 06:20 Hct 29.3 % (36.0-47.0) L 07/17/20 06:20 MCV 86 fl (80-97) 07/17/20 06:20 MCH 29.9 pg (27.0-33.4) 07/17/20 06:20 MCHC 34.6 g/dL (32.0-36.0) 07/17/20 06:20 RDW 14.2 % (11.5-14.0) H 07/17/20 06:20 Plt Count 132 10^3/uL (150-450) L 07/17/20 06:20 Lymph % (Auto) 18.4 % (13-45) 07/15/20 22:30 [place] % (Auto) 5.9 % (3-13) 07/15/20 22:30 Eos % (Auto) 0.2 % (0-6) 07/15/20 22:30 Baso % (Auto) 0.2 % (0-2) 07/15/20 22:30 Absolute Neuts (auto) 6.0 10^3/uL (1.7-8.2) 07/15/20 22:30 Absolute Lymphs (auto) 1.5 10^3/uL (0.5-4.7) 07/15/20 22:30 Absolute Monos (auto) 0.5 10^3/uL (0.1-1.4) 07/15/20 22:30 Absolute Eos (auto) 0.0 10^3/uL (0.0-0.6) 07/15/20 22:30 Absolute Basos (auto) 0.0 10^3/uL (0.0-0.2) 07/15/20 22:30 Seg Neutrophils % 75.3 % (42-78) 07/15/20 22:30 Urine Color YELLOW 07/15/20 19:00 Urine Appearance CLOUDY 07/15/20 19:00 Urine pH 7.0 (5.0-9.0) 07/15/20 19:00 Ur Specific [place] 1.017 07/15/20 19:00 Urine Protein 30 mg/dL (NEGATIVE) H 07/15/20 19:00 Urine Glucose (UA) NEGATIVE mg/dL (NEGATIVE) 07/15/20 19:00 Urine Ketones NEGATIVE mg/dL (NEGATIVE) 07/15/20 19:00 Urine Blood LARGE (NEGATIVE) H 07/15/20 19:00 Urine Nitrite NEGATIVE (NEGATIVE) 07/15/20 19:00 Urine Bilirubin NEGATIVE (NEGATIVE) 07/15/20 19:00 Urine Urobilinogen NEGATIVE mg/dL (<2.0) 07/15/20 19:00 Ur Leukocyte Esterase MODERATE (NEGATIVE) H 07/15/20 19:00 Urine Ascorbic Acid NEGATIVE (NEGATIVE) 07/15/20 19:00 Urine Opiates Screen NEGATIVE 07/15/20 19:00 Urine Methadone Screen NEGATIVE 07/15/20 19:00 Ur Barbiturates Screen NEGATIVE 07/15/20 19:00 Ur Phencyclidine Scrn NEGATIVE 07/15/20 19:00 Ur Amphetamines Screen NEGATIVE 07/15/20 19:00 U Benzodiazepines Scrn NEGATIVE 07/15/20 19:00 Urine Cocaine Screen NEGATIVE 07/15/20 19:00 U Marijuana (THC) Screen NEGATIVE 07/15/20 19:00 RPR NONREACTIVE (NONREACTIVE) 07/15/20 22:30 Blood Type A POSITIVE 07/15/20 22:30 Blood Type Confirm A POSITIVE 07/16/20 12:43 Antibody Screen NEGATIVE 07/15/20 22:30 Crossmatch See Detail 07/15/20 22:30 Plan Plan of Treatment: f/u at [facility] 4 wks Time Spent: Less than 30 Minutes
[2020-07-18 12:32] VITALS: BP 122/74
== END 2020-07-18 15:00 | disposition home or self-care (01) | DRG 807 ==
LOC: LC 18:49 → LR 21:45 → 2S 07-16 14:08
PROVIDERS: ADMIT Obstetrics & Gynecology Gynecology; ATTEND Obstetrics & Gynecology Gynecology
PROC: 10E0XZZ Delivery of Products of Conception, External Approach (ICD-10-PCS; principal; 2020-07-16)
PROC: 0HQ9XZZ Repair Perineum Skin, External Approach (ICD-10-PCS; 2020-07-16)
PROC: 10907ZC Drainage of Amniotic Fluid, Therapeutic from Products of Conception, Via Natural or Artificial Opening (ICD-10-PCS; 2020-07-16)
DX: O99.12 Other diseases of the blood and blood-forming organs and certain disorders involving the immune mechanism complicating childbirth (principal); Z37.0 Single live birth; D69.6 Thrombocytopenia, unspecified; O70.0 First degree perineal laceration during delivery; Z3A.38 38 weeks gestation of pregnancy; O36.8330 Maternal care for abnormalities of the fetal heart rate or rhythm, third trimester, not applicable or unspecified; O69.3XX0 Labor and delivery complicated by short cord, not applicable or unspecified
CPT/HCPCS: 1967; 36415; 59025; 80307; 81005; 85025; 85027; 86592; 86850; 86900; 86901; 86920; 88307; 94760; J2590; J2795; J3010; J3490